=== PATIENT | female | born 1975 | race Caucasian/White ===

== ENCOUNTER 2017-05-05 07:42 | Day surgery (SDC) | payer MEDICAID ==
[~2017-05-05] VITALS: Ht 157.5 cm; Wt 82.6 kg
--- NOTE | ~2017-05-05 | OP ---
PATIENT NAME: HEATHER RODRIGUEZ MEDICAL RECORD: [id number] :75 LOCATION:D.OPS ADMISSION DATE: SURGEON: JOSIAH MCDUFFIE MD OPERATION DATE: 05/05/17 DATE OF OPERATION: 05/05/2017 PREOPERATIVE DIAGNOSES: 1. Ventral incisional hernia. 2. Chronic hepatitis C. 3. Depression. 4. Arthritis. 5. Tobacco dependence syndrome. POSTOPERATIVE DIAGNOSES: 1. Ventral incisional hernia. 2. Chronic hepatitis C. 3. Depression. 4. Arthritis. 5. Tobacco dependence syndrome. PROCEDURE: Open ventral incisional hernia repair with 6.4 cm Proceed mesh. SURGEON: Josiah Mcduffie MD REPORT OF PROCEDURE: The patient's abdomen was prepped and draped in sterile fashion. A longitudinal incision was made in the midline in the epigastrium. The subcutaneous tissues were penetrated with electrocautery and we eventually came around a hernia sac. This hernia sac was opened up and we could see there was omental fat present within the sac. This was pushed back down into the peritoneal cavity and the hernia sac was transected down at the fascial edges. The fascial defect was a little over 3 cm in greatest diameter and was circular. The subfascial fatty tissue was removed and the tissue overlying the fascia was released. The 6.4 cm Proceed mesh was inserted and sutured down with multiple 0 Prolenes in a subfascial fashion. The mesh appeared to lie in good position with no sign of any bleeding. The fascia was closed over the mesh using a running 0 Vicryl transversally. The subcutaneous tissues were reapproximated with multiple interrupted 3-0 Vicryls and the skin was closed with running subcutaneous 5-0 Monocryl. A total of 10 mL of 0.25% Marcaine with epinephrine was infused into the surrounding tissues and the wound was dressed appropriately. COMPLICATIONS: None. CONDITION: Stable. ANESTHESIA: General endotracheal and local. BLOOD LOSS: Minimal. TRANSINT:[id number] Voice Confirmation ID: [id number] DOCUMENT ID: [id number] OPERATIVE REPORT [id number] HEATHER RODRIGUEZ JOSIAH MCDUFFIE MD CC: HEATH KIRK DO [id number] DICTATION DATE: 05/05/17 1303 MAMMOGRAPHY SUPERVISOR: 05/05/172039 [facility] 05/05/17 [facility] [address] [place] [address]
[~2017-05-05 07:42] MED LIST: HYDROCODONE-APA1 TAB PO; IBUPROFEN600 MG PO; NORCO 7.5/325 T1 TA1 PO; XANAX1 MG PO
[2017-05-05 08:14] LABS: BASOPHILS 0.3 % (0-2); EOSINOPHILS 2.2 % (0-7); HEMOGLOBIN 15.8 g/dL (12-16); IMMATURE GRANULOCYTES 0.3 % (0-5); LYMPHOCYTES 31.1 % (15-50); MCH 29.3 pg (26.0-34.0); MCHC 34.3 g/dL (31.0-37.0); MCV 85.3 fL (80.0-100.0); MEAN PLATELET VOLUME 9.8 fL (7.4-10.4); MONOCYTES 5.6 % (2-11); NEUTROPHILS 60.5 % (40-80); PLATELET COUNT 286 10x3/uL (130-400); RBC 5.39 10x6/uL (4.00-5.40); RDW 12.3 % (11.5-14.5); WBC 7.7 10x3/uL (4.8-10.8)
[2017-05-05 08:29] LABS: ALBUMIN 3.9 g/dL (3.4-5.0); ALKALINE PHOSPHATASE 104 U/L (46-116); ALT (SGPT) 59 U/L (10-68); BILIRUBIN - TOTAL 0.47 mg/dL (0.2-1.3); CALC OSMOLALITY 279 mosm/kg (275-300); CALCIUM 9.1 mg/dL (8.5-10.1); CARBON DIOXIDE 29.9 mmol/L (21.0-32.0); CHLORIDE - SERUM 104 mmol/L (98-107); CREATININE - SERUM 0.8 mg/dL (0.6-1.3); GLUCOSE 102 mg/dL (74-106); POTASSIUM - SERUM 3.8 mmol/L (3.5-5.1); PROTEIN - SERUM 7.9 g/dL (6.4-8.2); SODIUM 141 mmol/L (136-145); UREA NITROGEN 9 mg/dL (7-18); eGFR NON AFRICAN AMERICAN 84 mL/min (90-120)
[2017-05-05 08:35] LABS: APTT 24.3 SECONDS (22.8-39.4); INR 0.96 (0.85-1.17); PROTIME 12.7 SECONDS (11.6-15.0)
[2017-05-05] MEDS ORDERED: CLARITIN 10 MG10 MG PO (09:27)
[2017-05-05] MEDS ORDERED: FUROSEMIDE20 MG PO (09:28)
[2017-05-05] MEDS ORDERED: FLUTICASONE PRO16 GM NASAL (09:28)
[2017-05-05] MEDS ORDERED: CELEXA10 MG PO (09:28)
[2017-05-05] MEDS ORDERED: POTASSIUM CHLO10 ME1 PO (09:28)
[2017-05-05 09:29] VITALS: BP 131/79; Ht 157.5 cm; Wt 82.6 kg
[2017-05-05] MEDS ORDERED: HYDROCODONE-APA1 TAB PO (12:53)
--- NOTE | 2017-05-05 17:10 | NUR ---
1528- IV DC'D WITH TIP INTACT. NO REDNESS OR SWELLING NOTED TO SITE. DISCHARGE INSTRUCTIONS REVIEWED. VERBALIZED UNDERSTANDING. DC'D VIA WC WITH STAFF AND FAMILY
== END 2017-05-05 17:12 | disposition home or self-care (01) ==
LOC: D.OPS 07:42 → D.PAN 10:45 → D.OPS 10:45 → D.PAN 14:00 → D.OPS 17:12
PROVIDERS: Anesthesiology
DX: K43.2 Incisional hernia without obstruction or gangrene (principal); B18.2 Chronic viral hepatitis C; F32.9 Major depressive disorder, single episode, unspecified; M19.90 Unspecified osteoarthritis, unspecified site; F17.200 Nicotine dependence, unspecified, uncomplicated; Z01.812 Encounter for preprocedural laboratory examination

== ENCOUNTER 2019-04-04 07:58 | Inpatient (IN) | payer MEDICAID ==
[2019-04-03 14:40] LABS: APTT 30.5 SECONDS (22.8-39.4); INR 1.06 (0.85-1.17); PROTIME 13.3 SECONDS (11.6-15.0)
[2019-04-03 14:43] LABS: CALC OSMOLALITY 274 mosm/kg (275-300); CALCIUM 9.1 mg/dL (8.5-10.1); CARBON DIOXIDE 27.4 mmol/L (21.0-32.0); CHLORIDE - SERUM 100 mmol/L (98-107); CREATININE - SERUM 0.8 mg/dL (0.6-1.3); GLUCOSE 106 mg/dL (74-106); POTASSIUM - SERUM 4.1 mmol/L (3.5-5.1); SODIUM 138 mmol/L (136-145); UREA NITROGEN 10 mg/dL (7-18); eGFR NON AFRICAN AMERICAN 83 mL/min (90-120)
[2019-04-04] VITALS (22 sets, daily range): BP systolic 78–132; BP diastolic 35–73; BMI 34.4; BMI 36.1
[~2019-04-04] VITALS: Ht 157.5 cm; Wt 89.4 kg
--- NOTE | ~2019-04-04 | DS ---
PATIENT:HEATHER RODRIGUEZ :75 MEDICAL RECORD: [id number] DISCHARGE SUMMARY ADMISSION DATE: 04/04/19 DISCHARGE DATE: 04/07/19 DATE OF ADMISSION: 04/04/2019. DATE OF DISCHARGE: 04/07/2019. ADMISSION DIAGNOSES: 1. Status post ventral hernia repair. 2. Postoperative hypotension. 3. Acute postoperative blood loss anemia. DISCHARGE DIAGNOSES: 1. Status post ventral hernia repair. 2. Postoperative hypotension. 3. Acute postoperative blood loss anemia. PROCEDURE: Ventral hernia repair times 2. CONSULTATIONS: None. REPORT OF HOSPITALIZATION: The patient was admitted to the hospital when she was found to be severely hypotensive postoperatively. The patient was noted to have decreased blood counts and was given 2 units of packed red blood cells. She was transferred to the CV-ICU for overnight observation. The following morning, she was felt to be stable. She was off all pressors. She was awake and alert and had minimal pain. She was able to ambulate appropriately and was transferred to the floor. At that point, she was started on a regular diet, which she tolerated well and was having bowel function. She had no evidence of any further bleeding over the next couple of days, her main complaint was of swelling, which was treated with Lasix. At the day of discharge, she was tolerating a regular diet, having normal bowel function. Her pain was well controlled and she has had no fevers or chills along with a stable hemoglobin for nearly 48 hours. DISCHARGE INSTRUCTIONS: Return to clinic or call if any questions or concerns, fevers, chills, nausea, vomiting, or worsening abdominal pain. ACTIVITIES: No heavy lifting or straining for 6 weeks postoperatively. FOLLOWUP: In clinic with me in 2 weeks. TRANSINT:[id number] Voice Confirmation ID: [id number] DOCUMENT ID: [id number] JAIRO MCDUFFIE MD CC: [id number] DICTATION DATE: 04/07/19 1022 LIVE AMMUNITION INSPECTOR: 04/07/19 2243 DIS IN 04/07/19 [place] [id number] [place] [id number]
--- NOTE | ~2019-04-04 | OP ---
PATIENT NAME: HEATHER RODRIGUEZ MEDICAL RECORD: [id number] :75 LOCATION:D.OPS ADMISSION DATE: SURGEON: JOSIAH MCDUFFIE MD DATE OF OPERATION: 04/04/2019 PREOPERATIVE DIAGNOSES: 1. Ventral hernia times 2. 2. Hepatitis C. 3. Tobacco dependence syndrome. POSTOPERATIVE DIAGNOSES: 1. Ventral hernia times 3. 2. Hepatitis C. 3. Tobacco dependence syndrome. PROCEDURES: 1. Ventral hernia repair with 6.4-cm Ventralight mesh. 2. Ventral hernia repair without mesh. 3. Diagnostic laparoscopy. SURGEON: Josiah Mcduffie MD REPORT OF PROCEDURE: The patient's abdomen was prepped and draped in sterile fashion. The patient was known to have 2 hernias very near the umbilicus. A semicircular incision was made on the inferior aspect of the umbilicus. Electrocautery was used to dissect through the subcutaneous tissues. We elevated the umbilical stalk and ran into a small fat-containing hernia defect. Just above this, there was another small fat-containing hernia defect. Both of these areas were a little over a centimeter in size and were by small bridge of fascial tissue. We opened up this fascial bridge and I bluntly entered the abdominal cavity and sweeped away any of the anterior abdominal adhesions that were present. We then inserted an 11-mm trocar through the hernia defect and insufflated the abdomen. We could see there was some fatty tissue adherent to the inferior aspect of the midline. A 5-mm trocar was placed in the right lower quadrant and we were able to use this to dissect the fatty tissue off the anterior abdominal wall and could see there was a small hernia defect present. This was marked on the skin and an opening was made over this area using a #15 blade and then electrocautery was used to dissect through the subcutaneous tissues until we encountered the hernia defect. This defect was less than a centimeter in size and had just some fatty content within it. At this point, we removed the insufflation and the trocars. The smaller and more inferior hernia defect was closed primarily after we cleaned off the fascial edges using interrupted #0 Prolenes times 2. There was good approximation of the tissue with no signs of any tension. We then approached the hernia near the umbilicus. A 6.4-cm Ventralight mesh was inserted and sutured down on all 4 sides in an underlay fashion using #0 Vicryls times 4. The mesh appeared to rest in good position. We irrigated out the wound thoroughly with normal saline and assured there was no sign of any bleeding. The fascia was then closed transversely with running #0 Vicryl. The umbilicus was tacked down to the fascia using a single interrupted 3-0 Vicryl and the subcutaneous tissues of the 2 wounds were reapproximated with interrupted 3-0 Vicryl. The skin incision of all 3 openings was closed with running subcutaneous 5-0 Monocryl and the incisions were dressed appropriately. A total of 10 mL of 0.25% Marcaine with epinephrine was infused into the surrounding tissues. OPERATIVE REPORT [id number] HEATHER RODRIGUEZ COMPLICATIONS: None. CONDITION: Stable. ANESTHESIA: General endotracheal and local. BLOOD LOSS: Minimal. TRANSINT:[id number] Voice Confirmation ID: [id number] DOCUMENT ID: [id number] JOSIAH MCDUFFIE MD CC: HEATH KIRK DO [id number] DICTATION DATE: 04/04/19 1209 SCANNING COORDINATOR: 04/04/19 1238 [facility] [address] [place] [address]
[~2019-04-04 07:58] MED LIST changes: +ABILIFY2 MG PO; +CELEXA10 MG PO; +CLARITIN 10 MG10 MG PO; +FLUTICASONE PRO16 GM NASAL; +FUROSEMIDE20 MG PO; +POTASSIUM CHLO10 ME1 PO
[2019-04-04 08:59] LABS: HEMATOCRIT 45.5 % (36.0-48.0); MCH 28.6 pg (26.0-34.0); MCV 86.8 fL (80.0-100.0); MEAN PLATELET VOLUME 9.8 fL (7.4-10.4); PLATELET COUNT 325 10x3/uL (130-400); RBC 5.24 10x6/uL (4.00-5.40); RDW 12.8 % (11.5-14.5)
[2019-04-04 10:42] LABS: EOSINOPHILS 6 % (0-7); LYMPHOCYTES 27 % (15-50); MONOCYTES 17 % (2-11); NEUTROPHILS 46 % (40-80)
[2019-04-04 10:43] LABS: PLATELET ESTIMATE NORMAL; ROULEAUX OCC
[2019-04-04] MEDS ORDERED: HYDROCODON-ACE1 EA10 PO (12:03)
[2019-04-04 18:16] LABS: HEMATOCRIT 28.9 % (36.0-48.0); HEMOGLOBIN 9.4 g/dL (12-16); MCH 27.9 pg (26.0-34.0); MCHC 32.5 g/dL (31.0-37.0); MCV 85.8 fL (80.0-100.0); MEAN PLATELET VOLUME 9.2 fL (7.4-10.4); PLATELET COUNT 366 10x3/uL (130-400); RBC 3.37 10x6/uL (4.00-5.40); RDW 12.4 % (11.5-14.5); WBC 22.6 10x3/uL (4.8-10.8)
[2019-04-04 18:29] LABS: CALCIUM 8.2 mg/dL (8.5-10.1); CARBON DIOXIDE 22.9 mmol/L (21.0-32.0); POTASSIUM - SERUM 3.9 mmol/L (3.5-5.1)
[2019-04-04 18:32] LABS: CREATININE - SERUM 1.7 mg/dL (0.6-1.3)
[2019-04-04 18:47] LABS: EOSINOPHILS 5 % (0-7); LYMPHOCYTES 24 % (15-50); MONOCYTES 2 % (2-11); NEUTROPHILS 69 % (40-80)
[2019-04-04 18:50] LABS: PLATELET ESTIMATE NORMAL
--- NOTE | 2019-04-04 20:02 | NUR ---
1630 DR. MIRAMONTES AT BEDSIDE. 50 MG EPHEDRINE ADMINISTERED IM. EKG OBTAINED. AWAITING CXR. LR IVF WIDE OPEN.PT AWAKE AND ALERT. DISCUSSED POC. 17[address]KG [address]. PT AWAKE AND ALERT [address] MIRAMONTES AT BEDSIDE [address] DR. MCDUFFIE AT [facility]. AWAITING CBC RESULTS AND ICU BED [address] MCDUFFIE AWARE 191 TRANSPORTED VIA STRETCHER TO [facility] PT AWAKE AND ALERT. BP 82/43. REPORT GIVEN.
[2019-04-04 20:28] LABS: INR 1.18 (0.85-1.17); PROTIME 14.5 SECONDS (11.6-15.0)
[2019-04-04 20:35] LABS: HEMATOCRIT 27.7 % (36.0-48.0); HEMOGLOBIN 9.1 g/dL (12-16); MCH 27.8 pg (26.0-34.0); MCHC 32.9 g/dL (31.0-37.0); MCV 84.7 fL (80.0-100.0); MEAN PLATELET VOLUME 9.4 fL (7.4-10.4); PLATELET COUNT 378 10x3/uL (130-400); RBC 3.27 10x6/uL (4.00-5.40); RDW 12.3 % (11.5-14.5); WBC 26.7 10x3/uL (4.8-10.8)
[2019-04-04 21:12] LABS: LYMPHOCYTES 10 % (15-50); NEUTROPHILS 87 % (40-80); PLATELET ESTIMATE NORMAL
[2019-04-05] VITALS (27 sets, daily range): BP systolic 89–130; BP diastolic 48–80; Ht 157.5 cm; Wt 89.4 kg
--- NOTE | 2019-04-05 02:25 | NUR ---
DILAUDID SOFTBALL PLAYER STARTED AT THIS TIME. PATIENT STATES THAT THE PAIN MED IS HELPING AND DENIES ANY OTHER NEEDS. CALL LIGHT WIHTIN REACH, BED IN LOW POSITION.
[2019-04-05 04:27] LABS: HEMATOCRIT 31.5 % (36.0-48.0); HEMOGLOBIN 10.9 g/dL (12-16); RBC 3.83 10x6/uL (4.00-5.40)
[2019-04-05 04:28] LABS: BASOPHILS 0 % (0-2); EOSINOPHILS 0 % (0-7); IMMATURE GRANULOCYTES 1.1 % (0-5); LYMPHOCYTES 8.9 % (15-50); MCH 28.5 pg (26.0-34.0); MCHC 34.6 g/dL (31.0-37.0); MCV 82.2 fL (80.0-100.0); MEAN PLATELET VOLUME 9.4 fL (7.4-10.4); MONOCYTES 4.4 % (2-11); NEUTROPHILS 85.6 % (40-80); PLATELET COUNT 237 10x3/uL (130-400); RDW 12.7 % (11.5-14.5)
[2019-04-05 04:39] LABS: ANION GAP 14.8 mmol/L (8-16); CALCIUM 7.6 mg/dL (8.5-10.1); CARBON DIOXIDE 21.7 mmol/L (21.0-32.0)
[2019-04-05 04:40] LABS: POTASSIUM - SERUM 4.5 mmol/L (3.5-5.1)
--- NOTE | 2019-04-05 07:40 | NUR ---
AFTER MULTIPLE ATTEMPTS TO VOID ON BED ACEVEDO DURING THE NIGHT #16F REYES CATH INSERTED USING ASEPTIC TECHNIQUE WITH IMMEDIATE RETURN APPROX 350CC CLEAR CONI URINE.
[2019-04-05 13:08] LABS: HEMATOCRIT 26.9 % (36.0-48.0); HEMOGLOBIN 9.4 g/dL (12-16)
--- NOTE | 2019-04-05 13:14 | NUR ---
UP TO CHAIR.
--- NOTE | 2019-04-05 14:06 | NUR ---
O2 DECREASED TO 4 LPM.
--- NOTE | 2019-04-05 16:20 | NUR ---
ERIC PACHECO REMAINS UP IN CHAIR. NO DISTRESS NOTED.
--- NOTE | 2019-04-05 17:44 | NUR ---
1730: REPORT CALLED TO ANASTASIA HWANG ON MED SURG. 1743: TRANSFERRED TO ROOM 2223 VIA WHEELCHAIR.
--- NOTE | 2019-04-05 17:54 | NUR ---
PT RECIEVED FROM ICU. NO SIGNS OF DISTRESS. IV TO LEFT FORARM PATENT NO REDNESS OR TENDERNESS. ON 4L NC. DENIES ANY OTHER NEED AT THIS TIME. CALL LIGHT IN REACH. BED LOW POSITION. NO FAMILY AT BEDSIDE AT THIS TIME.
--- NOTE | 2019-04-05 21:00 | NUR ---
PT UP TO BEDSIDE COMMODE INDEPENDENTLY TO VOID. LEAD PORTFOLIO MANAGER FOR PAIN CONTROL. BINDER IN PLACE. DENIES NEEDS. COMPLETE ASSESSMENT PER FLOW-SHEET.
[2019-04-05 21:58] LABS: HEMATOCRIT 24.6 % (36.0-48.0); HEMOGLOBIN 8.4 g/dL (12-16)
[2019-04-06] VITALS: BP 103/44
[2019-04-06 04:00] VITALS: BP 118/72
[2019-04-06 07:13] LABS: BASOPHILS 0.1 % (0-2); EOSINOPHILS 0.3 % (0-7); HEMATOCRIT 23.9 % (36.0-48.0); HEMOGLOBIN 8.1 g/dL (12-16); IMMATURE GRANULOCYTES 0.6 % (0-5); LYMPHOCYTES 19.3 % (15-50); MCH 28.7 pg (26.0-34.0); MCHC 33.9 g/dL (31.0-37.0); MEAN PLATELET VOLUME 8.8 fL (7.4-10.4); MONOCYTES 6.7 % (2-11); PLATELET COUNT 193 10x3/uL (130-400); RDW 13.4 % (11.5-14.5)
[2019-04-06 07:17] LABS: MCV 84.8 fL (80.0-100.0); RBC 2.82 10x6/uL (4.00-5.40); WBC 14.9 10x3/uL (4.8-10.8)
[2019-04-06 07:27] LABS: CHLORIDE - SERUM 107 mmol/L (98-107); GLUCOSE 110 mg/dL (74-106); SODIUM 140 mmol/L (136-145)
[2019-04-06 07:28] LABS: CALC OSMOLALITY 278 mosm/kg (275-300); CARBON DIOXIDE 27.2 mmol/L (21.0-32.0); CREATININE - SERUM 0.6 mg/dL (0.6-1.3); UREA NITROGEN 11 mg/dL (7-18); eGFR NON AFRICAN AMERICAN > 90 mL/min (90-120)
[2019-04-06 09:12] VITALS: BP 139/57
[2019-04-06 12:53] VITALS: BP 149/73
[2019-04-06 17:45] VITALS: BP 128/70
--- NOTE | 2019-04-06 18:34 | NUR ---
I have reviewed this patient and I concur with the Shift Assessment completed by the Licensed Practical Nurse today this shift.
[2019-04-06 20:00] VITALS: BP 130/70
--- NOTE | 2019-04-06 20:41 | NUR ---
PT ALERT/ORIENTED. C/O PAIN 03/25. GAVE NORCO-10 1 TAB PO. PT UP TO BSC TO VOID. ASSESSMENT COMPLETE PER FLOW-SHEET. NO OTHER NEEDS. WILL CONTINUE TO MONITOR.
[2019-04-07] VITALS: BP 124/81
[2019-04-07 04:00] VITALS: BP 118/73
[2019-04-07 04:59] LABS: BASOPHILS 0.2 % (0-2); EOSINOPHILS 2.3 % (0-7); HEMATOCRIT 24.5 % (36.0-48.0); HEMOGLOBIN 8.1 g/dL (12-16); IMMATURE GRANULOCYTES 1.3 % (0-5); LYMPHOCYTES 20.4 % (15-50); MCH 28.3 pg (26.0-34.0); MCHC 33.1 g/dL (31.0-37.0); MCV 85.7 fL (80.0-100.0); MEAN PLATELET VOLUME 8.9 fL (7.4-10.4); MONOCYTES 7.5 % (2-11); NEUTROPHILS 68.3 % (40-80); PLATELET COUNT 212 10x3/uL (130-400); RBC 2.86 10x6/uL (4.00-5.40); RDW 13.3 % (11.5-14.5); WBC 11.7 10x3/uL (4.8-10.8)
[2019-04-07 05:12] LABS: CALC OSMOLALITY 276 mosm/kg (275-300); CALCIUM 8.5 mg/dL (8.5-10.1); CARBON DIOXIDE 29.5 mmol/L (21.0-32.0); CHLORIDE - SERUM 105 mmol/L (98-107); CREATININE - SERUM 0.6 mg/dL (0.6-1.3); GLUCOSE 104 mg/dL (74-106); POTASSIUM - SERUM 3.8 mmol/L (3.5-5.1); SODIUM 140 mmol/L (136-145); eGFR NON AFRICAN AMERICAN > 90 mL/min (90-120)
[2019-04-07 05:14] LABS: UREA NITROGEN 7 mg/dL (7-18)
[2019-04-07 09:14] VITALS: BP 165/77
--- NOTE | 2019-04-07 10:42 | NUR ---
PT'S PRESCRIPTION FOR NORCO FOR DISCHARGE HAD BEEN GIVEN TO PT AND SISTER HAS ALREADY GOTTEN FILLED.
[2019-04-07 12:51] VITALS: BP 188/67
--- NOTE | 2019-04-07 13:16 | NUR ---
IV REMOVED WITH NO REDNESS OR EDEMA AT SITE. DISCHARGE INSTRUCTIONS GIVEN WITH PATIENT VOICING UNDERSTANDING. PATIENT TAKEN BY WHEELCHAIR TO PRIVATE CAR.
== END 2019-04-07 13:19 | disposition home or self-care (01) | DRG 988 ==
LOC: D.OPS 07:58 → D.PAN 10:00 → D.OPS 10:00 → D.CVICU 18:12 → D.MS 04-05 17:45
PROVIDERS: ADMIT Surgery; ATTEND Surgery
PROC: 0WUF0JZ Supplement Abdominal Wall with Synthetic Substitute, Open Approach (ICD-10-PCS; principal; 2019-04-04 10:00)
PROC: 0WQF0ZZ Repair Abdominal Wall, Open Approach (ICD-10-PCS; 2019-04-04 10:00)
DX: I95.81 Postprocedural hypotension (principal); D62 Acute posthemorrhagic anemia; K43.9 Ventral hernia without obstruction or gangrene; B18.2 Chronic viral hepatitis C; F17.200 Nicotine dependence, unspecified, uncomplicated

== ENCOUNTER 2019-09-23 08:00 | Outpatient (CLI) | payer MEDICAID ==
[2019-04-05 10:21] VITALS: BMI 36.0
[~2019-09-23 08:00] MED LIST changes: +HYDROCODON-ACE1 EA10 PO
== END 2019-09-23 23:59 | disposition home or self-care (01) ==
LOC: D.MAMMO 08:00
PROVIDERS: ATTEND Family Medicine
DX: Z12.31 Encounter for screening mammogram for malignant neoplasm of breast (principal)